=== PATIENT | female | born 1965 | race Caucasian/White ===

== ENCOUNTER 2017-11-18 07:46 | Emergency (ER) | payer MEDICAID ==
[~2017-11-18] VITALS: Ht 5535.5 cm; Wt 132.3 kg
[~2017-11-18 07:46] MED LIST: DIAZ5TAB PO
[2017-11-18] MEDS ORDERED: TRAM50TA2 PO (08:48)
[2017-11-18 08:59] VITALS: BP 168/107
== END 2017-11-18 09:03 | disposition home or self-care (01) ==
LOC: ER 07:46
DX: Z76.0 Encounter for issue of repeat prescription (principal); I10 Essential (primary) hypertension; G89.29 Other chronic pain; M54.9 Dorsalgia, unspecified; Z88.6 Allergy status to analgesic agent
CPT/HCPCS: 99283

== ENCOUNTER 2020-02-08 05:36 | Emergency (ER) | payer MEDICAID ==
[~2020-02-08] VITALS: Ht 167.6 cm; Wt 137.3 kg
[2020-02-08 05:38] VITALS: BP 181/76
== END 2020-02-08 07:00 | disposition home or self-care (01) ==
LOC: ER 05:36
DX: J06.9 Acute upper respiratory infection, unspecified (principal); I10 Essential (primary) hypertension; G89.29 Other chronic pain; Z88.6 Allergy status to analgesic agent; Z88.1 Allergy status to other antibiotic agents; Z79.899 Other long term (current) drug therapy
CPT/HCPCS: 99281

== ENCOUNTER 2020-11-09 07:14 | Emergency (ER) | payer MEDICAID ==
[~2020-11-09] VITALS: Ht 167.6 cm; Wt 150.0 kg
[2020-11-09 07:24] VITALS: BP 210/69
== END 2020-11-09 08:04 | disposition home or self-care (01) ==
LOC: ER 07:14
DX: S92.425A Nondisplaced fracture of distal phalanx of left great toe, initial encounter for closed fracture (principal); M79.675 Pain in left toe(s); I10 Essential (primary) hypertension; G89.29 Other chronic pain; Z88.8 Allergy status to other drugs, medicaments and biological substances; Z88.1 Allergy status to other antibiotic agents; Z79.899 Other long term (current) drug therapy; W19.XXXA Unspecified fall, initial encounter; Y93.89 Activity, other specified; Y92.89 Other specified places as the place of occurrence of the external cause; Y99.8 Other external cause status
CPT/HCPCS: 73660; 99283

== ENCOUNTER 2021-03-07 17:02 | Emergency (ER) | payer MEDICAID ==
[~2021-03-07] VITALS: Ht 167.6 cm; Wt 13.9 kg
[2021-03-07 17:17] VITALS: BP 179/88
[2021-03-07] MEDS ORDERED: TRAM50TA2 PO (17:35)
== END 2021-03-07 17:48 | disposition home or self-care (01) ==
LOC: ER 17:03
DX: Z02.89 Encounter for other administrative examinations (principal); G89.29 Other chronic pain
CPT/HCPCS: 99283

== ENCOUNTER 2022-06-19 22:01 | Emergency (ER) | payer MEDICAID | END 2022-06-20 02:34 | disposition left against medical advice (07) | LOC: ER 22:03 | DX: U07.1 COVID-19 (principal); Z53.21 Procedure and treatment not carried out due to patient leaving prior to being seen by health care provider ==

== ENCOUNTER 2022-07-23 06:12 | Emergency (ER) | payer MEDICAID | END 2022-07-23 14:05 | disposition left against medical advice (07) | LOC: ER 06:13 | DX: T81.9XXA Unspecified complication of procedure, initial encounter (principal); Z53.21 Procedure and treatment not carried out due to patient leaving prior to being seen by health care provider ==

== ENCOUNTER 2023-01-03 08:46 | Emergency (ER) | payer MEDICAID | END 2023-01-03 09:55 | disposition left against medical advice (07) | LOC: ER 08:46 | DX: F29 Unspecified psychosis not due to a substance or known physiological condition (principal); Z53.21 Procedure and treatment not carried out due to patient leaving prior to being seen by health care provider ==

== ENCOUNTER 2023-01-04 08:50 | Emergency (ER) | payer MEDICAID ==
[~2023-01-04] VITALS: Ht 167.6 cm; Wt 125.0 kg
[2023-01-04] MEDS ORDERED: ALPR1TAB2 PO (09:32)
[2023-01-04 09:35] VITALS: BP 128/69
== END 2023-01-04 09:50 | disposition home or self-care (01) ==
LOC: ER 08:50
DX: F41.9 Anxiety disorder, unspecified (principal); I10 Essential (primary) hypertension; G89.29 Other chronic pain; M54.50 Low back pain, unspecified; Z88.6 Allergy status to analgesic agent; Z88.1 Allergy status to other antibiotic agents; Z88.2 Allergy status to sulfonamides
CPT/HCPCS: 99283

== ENCOUNTER 2023-04-14 09:47 | Outpatient (CLI) | payer MEDICAID ==
[~2023-04-14 09:47] MED LIST changes: +ALPR1TAB2 PO
== END 2023-04-14 23:59 | disposition home or self-care (01) ==
LOC: RAD 09:47
PROVIDERS: ATTEND Nurse Practitioner Psychiatric/Mental Health
DX: Z79.899 Other long term (current) drug therapy (principal)
CPT/HCPCS: 93005

== ENCOUNTER 2024-08-13 10:59 | Outpatient (CLI) | payer MEDICAID | END 2024-08-13 23:59 | disposition home or self-care (01) | LOC: RAD 10:59 | PROVIDERS: ATTEND Nurse Practitioner Psychiatric/Mental Health | DX: I25.2 Old myocardial infarction (principal); Z79.899 Other long term (current) drug therapy; F25.0 Schizoaffective disorder, bipolar type | CPT/HCPCS: 93005 ==

== ENCOUNTER 2024-12-25 05:30 | Emergency (ER) | payer MEDICAID ==
[~2024-12-25] VITALS: Ht 167.6 cm; Wt 113.6 kg
[2024-12-25] MEDS: acetaminophen 325mg tablet PO ONE (06:58)
[2024-12-25] MEDS: ondansetron 4mg rapidly disintigrating tab PO ONE (06:58)
[2024-12-25] MEDS: traMADol 50MG tablet PO ONE (06:58)
[2024-12-25] MEDS ORDERED: HYDR-3973 PO (07:53)
[2024-12-25 07:56] VITALS: BP 148/96; PULSE 68; RESP 16; TEMP 97.7; O2SAT 98
== END 2024-12-25 08:09 | disposition home or self-care (01) ==
LOC: ER 05:31
DX: M17.12 Unilateral primary osteoarthritis, left knee (principal); I10 Essential (primary) hypertension; G89.29 Other chronic pain; M54.9 Dorsalgia, unspecified; Z88.6 Allergy status to analgesic agent; Z88.1 Allergy status to other antibiotic agents; Z79.899 Other long term (current) drug therapy; Z88.8 Allergy status to other drugs, medicaments and biological substances; Z72.89 Other problems related to lifestyle
CPT/HCPCS: 29505; 73560; 99284

== ENCOUNTER 2025-09-18 04:48 | Emergency (ER) | payer MEDICAID ==
[~2025-09-18] VITALS: Ht 167.6 cm; Wt 78.0 kg
[2025-09-18 06:07] LABS: MEAN PLATELET VOLUME 9.5 FL (7.4-10.4); RED CELL DISTRIBUTION WIDTH 14.6 % (11.5-14.5)
--- NOTE | 2025-09-18 06:09 | Physician Documentation ---
History of Present Illness ~ Chief Complaint: See Chief Complaint Stated Complaint: HIGH BLOOD PRESSURE Time Seen by MD: 06:08 Primary Medical Doctor: [facility] Mode of Arrival: POV HPI 59-year-old female who presents with high blood pressure and alcohol withdrawal She tells me that over the past many months she has been drinking heavily, states she drinks multiple bottles of hard alcohol. Her last drink was about a day ago. She tells me that she came in because she noticed that her blood pressure was really high. She also reports feeling shaky and anxious. She does take blood pressure medication and has been taking it regularly. She denies any history of alcohol withdrawal or seizures. She denies any infectious symptoms. No abdominal pain or current nausea. She has not really been eating or drinking much besides alcohol. Tetanus within 5 years?: No Medication Reconciliation Allergies: Coded Allergies: aspirin (Verified Allergy, Intermediate, IRRITATED AND ACID REFLUX, 09/18/25) bacitracin (Verified Allergy, Mild, rash, 09/18/25) neomycin (Verified Allergy, Mild, rash, 09/18/25) polymyxin B (Verified Allergy, Mild, rash, 09/18/25) vancomycin (Unverified Allergy, Unknown, RED MAN SYNDROME, 09/18/25) Scheduled Chlordiazepoxide Hcl (Librium), 25 MG PO DIRECTED Diazepam (Valium), 1 TAB PO TID PRN Potassium Chloride (Klor-Con), 1 PKT PO BID Scheduled PRN Alprazolam (Xanax), 1 TAB PO Q12H PRN PRN for for anxiety/agitation ONDANSETRON ODT 4mg tablet (Ondansetron Odt), 1 TAB PO Q6H PRN PRN for nausea/vomiting Past Medical History Past Medical History: Hypertension, Chronic Back Pain Past Surgical History: noncontributory Alcohol Use: Occasionally Drug Use: none Lives In: Home Review of Systems Constitutional: Denies: fever Gastrointestinal: Denies: abdominal pain, nausea Psychiatric: Reports: anxiety Physical Exam Vital Signs: Temperature: 96.8, Source: Oral, Heart Rate: 82, Respiratory Rate: 16, BP: 211/106, Pulse Oximetry: 97, Weight: 78.000 Physical Exam General: This is a pleasant middle-aged woman sitting calmly in bed HEENT: Atraumatic, oropharynx appears dry, she does have tongue fasciculations Heart: Mild tachycardic, appears regular Lungs: normal work of breathing, normal oxygen saturation on room air Abdomen: Soft, nondistended, nontender all quadrants Extremities: Warm and well-perfused Neuro: Alert and oriented Psychiatric: Appears mildly anxious but not in distress. Mild resting tremor in the extremities. Mild tongue fasciculations. Progress Results/Orders Results/Orders Completed Orders - HANDY MATHIS MD Lorazepam Tablet (Ativan Tablet) (09/18/25 06:20) Chlordiazepoxide Capsule (Librium Capsul (09/18/25 06:20) Potassium Cl 10meq/100ml Bag (Potassium (09/18/25 07:20) Thiamine Tablet (Thiamine Tablet) (09/18/25 07:20) Folic Acid Tablet (Folic Acid Tablet) (09/18/25 07:20) Potassium Bicarb 20meq Eff Tab (Effer-K (09/18/25 07:20) Medications Received in ER Medications (Trade) Dose Ordered Sig/Fanny Route PRN Reason Start Time Stop Time Status Last Admin Dose Admin (Apresoline 10mg tablet) 20 mg ONCE ONCE PO 09/18/25 05:50 09/18/25 05:51 DC 09/18/25 05:51 20 MG (Ativan tablet) 1 mg ONCE ONCE PO 09/18/25 06:20 09/18/25 06:21 DC 09/18/25 06:39 1 MG (Librium capsule) 50 mg ONCE ONCE PO 09/18/25 06:20 09/18/25 06:28 DC 09/18/25 06:39 50 MG Potassium Chloride 100 ml @ 100 mls/hr Q1H ONCE IV 09/18/25 07:20 09/18/25 08:19 DC 09/18/25 08:05 100 MLS/HR (thiamine tablet) 100 mg ONCE ONCE PO 09/18/25 07:20 09/18/25 07:21 DC 09/18/25 07:30 100 MG (folic acid tablet) 1 mg ONCE ONCE PO 09/18/25 07:20 09/18/25 07:25 DC 09/18/25 07:30 1 MG (Effer-K 20 Meq Tablet Eff) 40 meq ONCE ONCE PO 09/18/25 07:20 09/18/25 07:25 DC 09/18/25 08:09 40 MEQ Vital Signs 09/18/25 09/18/25 09/18/25 09/18/25 04:50 05:30 05:51 05:55 Temp 96.8 96.8 Pulse 108 99 82 Resp 15 16 B/P (MAP) 197/98 211/106 (141) Pulse Ox 96 97 09/18/25 09/18/25 09/18/25 06:39 06:39 06:42 Pulse 93 Resp 15 15 15 B/P (MAP) 159/82 (107) Pulse Ox 99 Laboratory Tests Test 09/18/25 05:35 White Blood Count 7.2 Red Blood Count 4.68 Hemoglobin 15.5 Hematocrit 45.2 H Mean Corpuscular Volume 96.5 Mean Corpuscular Hemoglobin 33.1 H Mean Corpuscular Hemoglobin Concent 34.3 Red Cell Distribution Width 14.6 H Platelet Count 167 Mean Platelet Volume 9.5 Neutrophils (%) (Auto) 80.9 H Lymphocytes (%) (Auto) 11.6 L Monocytes (%) (Auto) 6.3 Eosinophils (%) (Auto) 0.3 Basophils (%) (Auto) 0.9 Neutrophils # (Auto) 5.8 Lymphocytes # (Auto) 0.8 L Monocytes # (Auto) 0.5 Eosinophils # (Auto) 0.0 Basophils # (Auto) 0.1 CBC Comment Sodium Level 139 Potassium Level 2.6 *L Chloride Level 99 Carbon Dioxide Level 22.9 L Anion Gap 17 H Blood Urea Nitrogen 5 L Creatinine 0.59 Estimated GFR/1.73 m2 > 90 BUN/Creatinine Ratio 8.5 L Glucose Level 63 L Calcium Level 8.7 Total Bilirubin 1.0 Aspartate Amino Transf (AST/SGOT) 216 H Alanine Aminotransferase (ALT/SGPT) 139 H Alkaline Phosphatase 101 Total Protein 7.5 Albumin 3.4 Globulin 4.1 Albumin/Globulin Ratio 0.8 L Chemistry Comments Ethyl Alcohol Level 33 H Medical Decision Making Additional information obtaine: N/A Findings Not applicable Differential Dx:Considerations: Intoxication - ETOH, Intoxication - other drug, Sub. Abuse -continuous, Sub. Abuse-intermittent, Dehydration, Thiamine deficiency Additional Comment The patient presents with high blood pressure in the setting of stopping alcohol use. On exam she does have symptoms of mild alcohol withdrawal including tremor, tongue fasciculations and the cardia. She was given oral Ativan and Librium as well as food. Labs show significant hypokalemia. She was given oral and IV potassium. She was given other vitamins as well. On re-evaluation she was much improved, had minimal withdrawal symptoms. She would like to go home. She will be discharged with a Librium taper, oral potassium, and Zofran for nausea. She was given home care instructions and return precautions. Departure Time of Disposition: 09:41 Disposition: HOME / SELF CARE / HOMELESS Impression: Primary Impression: Alcohol withdrawal Additional Impression: Hypokalemia Condition: Improved Discharge Instructions: Alcohol Withdrawal Syndrome Referrals: NO PRIMARY CARE PROVIDER (PCP) Prescriptions Potassium Chloride (Klor-Con) 20 Meq Packet 1 PKT PO BID for 3 Days, #6 PKT 0 Refills Prov: HANDY MATHIS MD 09/18/25 ONDANSETRON ODT 4mg tablet (ONDANSETRON ODT) 4 Mg Tab.rapdis 1 TAB PO Q6H PRN PRN for nausea/vomiting for 4 Days, #16 TAB 0 Refills Prov: HANDY MATHIS MD 09/18/25 Chlordiazepoxide Hcl (Librium) 25 Mg Capsule 25 MG PO DIRECTED, #18 CAP 0 Refills Take 50 mg by mouth 4 times a day for 1 day, then Take 25 mg by mouth 4 times a day for 1 day, then Take 25 mg by mouth 3 times a day for 1 day, then Take 25 mg by mouth 2 times a day for 1 day, then Take 25 mg by mouth 1 time a day, then stop Prov: HANDY MATHIS MD 09/18/25 Education Educated: Patient Educated regarding: diagnosis, treatment, need for follow up Signature Scribe Signature: radha Attestation: HANDY Peña MD Sep 18, 2025 06:09
[2025-09-18 06:28] LABS: CREATININE 0.59 MG/DL (0.40-0.90); ETHANOL 33 MG/DL (<10); TOTAL CARBON DIOXIDE 22.9 MMOL/L (24-32); eCRCL 94 ML/MIN; eGFR > 90 ML/MIN
[2025-09-18] MEDS: potassium CL 10mEq/100ml bag 100 ML IV ONE (08:05)
[2025-09-18] MEDS: POTASSIUM BICARB 20meq eff tab 20 MEQ TABLET.EFF PO ONE (08:09)
[2025-09-18] MEDS ORDERED: CHLO25CA10 PO (09:44)
[2025-09-18] MEDS ORDERED: POTA20PA40 PO (09:45)
[2025-09-18] MEDS ORDERED: ONDA-243 PO (09:45)
[2025-09-18 09:55] VITALS: BP 154/95; PULSE 108; RESP 16; TEMP 98.4; O2SAT 98
== END 2025-09-18 09:54 | disposition home or self-care (01) ==
LOC: ER 04:49
DX: F10.239 Alcohol dependence with withdrawal, unspecified (principal); E87.6 Hypokalemia; G89.29 Other chronic pain; I10 Essential (primary) hypertension; Z88.6 Allergy status to analgesic agent; Z88.1 Allergy status to other antibiotic agents; Z79.899 Other long term (current) drug therapy; Z72.89 Other problems related to lifestyle; Y90.9 Presence of alcohol in blood, level not specified
CPT/HCPCS: 36415; 80053; 80320; 85025; 96365; 99284; J3480